=== PATIENT | female | born 1945 | race Caucasian/White ===

== ENCOUNTER → 2016-11-24 | Day surgery (SDC) | payer MEDICARE ==
[~2016-11-24] MED LIST: AMLODIPINE BESYL5 MG PO; BENICAR PO; CELEXA20 M1; CLOPIDOGREL BIS75 MG PO; HYDROCHLOROTHIA25 MG PO; KETOPROFEN PO; LIPITOR40 MG PO; PLAVIX PO; VICODIN 5/500 T1 TAB PO; ZOCOR PO
--- NOTE | ~2016-11-24 | OR ---
Unit #: [id number] #: [id number] Patient: MICHAEL NUNEZ [id number] [address] [place], [place] [address] [id number] O MR#: [id number] NAME: MICHAEL NUNEZ ROOM: Date of Procedure: 11/24/2016 Admission Date: 11/24/2016 Surgeon: Jomar Aggarwal M.D. : 1945 Attending Physician: Jomar Aggarwal M.D. Primary Care Physician: [facility] OPERATIVE REPORT PREOPERATIVE DIAGNOSIS Screening colonoscopy. POSTOPERATIVE DIAGNOSIS Screening colonoscopy. PROCEDURES PERFORMED 1. Colonoscopy to cecum. 2. Polypectomy x3 at 120 cm (proximal transverse colon) with hemoclip placement on one site. ANESTHESIA Monitored anesthesia care. FINDINGS The patient was found to have moderate internal hemorrhoids and 5 mm polyp x3 at 120 cm. SPECIMENS Sent to Pathology. COMPLICATIONS None apparent. CONDITION The patient tolerated the procedure well. INDICATIONS FOR PROCEDURE The patient is a 71-year-old white female, who presents at this time for screening colonoscopy. DESCRIPTION OF PROCEDURE After obtaining informed consent, the patient was brought to the endoscopy suite, and after adequate monitored anesthesia care, had the colonoscope placed through the anus and slowly advanced to the level of the cecum without difficulty with the lumen always in view. The cecum was normal as was the ileocecal valve. The ascending colon was normal as was the hepatic flexure and proximal transverse colon. At 120 cm that being proximal to mid transverse colon, there were 3 small 5 mm polyps each in close approximation to each other. Each was excised with electrocautery snare with good hemostasis. One site had a hemoclip placed to ensure good hemostasis. The polyps were retrieved with mucus trap and sent to Unit #: [id number] #: [id number] Patient: MICHAEL NUNEZ Pathology. The remaining portion of the transverse colon, splenic flexure, descending colon, sigmoid colon, and rectum were normal. No diverticula were seen. On retroflexing in the rectum to the anorectal junction, there were some moderate internal hemorrhoids seen. The scope was removed without difficulty. The patient tolerated the procedure well and went from the endoscopy suite to the recovery area in stable condition. RECOMMENDATIONS High-fiber diet, lots of liquids, tucks or wipes p.r.n. Call Wednesday for pathology. Dictated by... Ed Montes/lalito TD: 11/24/2016 08:16 JOB #: [id number] CC: Harriet Galvin Np [facility] OPERATIVE REPORT Page 1 of 1 X Jomar Aggarwal MD X PROCEDURE OPERATIVE NOTE
== END | disposition home or self-care (01) ==
LOC: COPS 06:02
DX: Z12.11 Encounter for screening for malignant neoplasm of colon (principal); K63.5 Polyp of colon; K64.8 Other hemorrhoids; K21.9 Gastro-esophageal reflux disease without esophagitis; I10 Essential (primary) hypertension; F32.9 Major depressive disorder, single episode, unspecified; F41.9 Anxiety disorder, unspecified; Z87.442 Personal history of urinary calculi; Z86.73 Personal history of transient ischemic attack (TIA), and cerebral infarction without residual deficits; Z79.899 Other long term (current) drug therapy; Z98.84 Bariatric surgery status; Z98.890 Other specified postprocedural states
CPT/HCPCS: 88305